=== PATIENT | male | born 1990 | race Caucasian/White ===

== ENCOUNTER 2017-07-31 09:45 | Emergency (ER) | payer SELFPAY ==
[2017-07-31] MEDS ORDERED: HYDROcodone/ACETAMIN 5-325 MG* 1 TAB PO ONE ×2 (10:32→11:25)
[2017-07-31] MEDS ORDERED: Ketorolac INJ* 30 MG/ML 1 ML VIAL IM ONE (10:32)
--- NOTE | 2017-07-31 10:49 | UC ---
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 + immediate pain, patient was wearing protective shoe wear. R foot pain and R ankle pain, + swelling. no medications prior to arrival. Work injury. Patient non-ambulatory due to pain - History of Current Complaint Chief Complaint: UCLowerExtremity Stated Complaint: RIGHT FOOT INJURY WC Time Seen by Provider: 07/31/17 10:28 Hx Obtained From: Patient Onset/Duration: Sudden Onset, Lasting Hours Severity Initially: Severe Severity Currently: Severe Pain Intensity: 10 Pain Scale Used: 0-10 Numeric Aggravating Factor(s): Standing, Ambulation Alleviating Factor(s): Rest Able to Bear Weight: No Related History: Occupational Injury - Allergies/Home Medications Allergies/Adverse Reactions: Allergies Allergy/AdvReac Type Severity Reaction Status Date / Time Risperidone [From Risperdal] Allergy Swelling Verified 07/31/17 10:09 Of Face,Lips,& Throat PMH/Surg Hx/FS Hx/Imm Hx Previously Healthy: Yes - Surgical History Surgical History: Yes Surgery Procedure, Year, and Place: PE Tubes as a child, CHEST TUBE WITH PNEUMO IN 2009 - Social History Alcohol Use: None Substance Use Type: None Smoking Status (MU): Former Smoker Type: Cigarettes Amount Used/How Often: 1/2 PPD Length of Time of Smoking/Using Tobacco: 4 Years Have You Smoked in the Last Year: Yes Household Exposure Type: Cigarettes - Immunization History Most Recent Influenza Vaccination: no Review of Systems Motor: Decreased ROM Musculoskeletal: Arthralgia, Decreased ROM, Edema, Myalgia Psychological: Anxious Is Patient Immunocompromised?: No All Other Systems Reviewed And Are Negative: Yes Physical Exam Triage Information Reviewed: Yes Appearance: Well-Appearing, Well-Nourished, Pain Distress Vital Signs: Initial Vital Signs Temp 98.4 F 07/31/17 10:05 Pulse 88 07/31/17 10:05 Resp 16 07/31/17 10:05 BP 124/77 07/31/17 10:05 Pulse Ox 100 07/31/17 10:05 Vital Signs Reviewed: Yes Musculoskeletal: Positive: ROM Intact - R toes however painful, Edema @ - R foot diffusely, Other: - decreased ankle ROM due to pain , tenderness to light touch over R foot ,+ pain over medial malleolus. Neurological: Positive: Alert, Other: - sensation intact to light touch Psychological Exam: Normal Skin: Positive: Other - ecchymosis over dorsal aspect of right foot Lower Extremity Course/Dx - Course Course Of Treatment: Radiograph- non disp fx 2nd met- follow up closely with ortho within 1 week, non-weight bearing, splint placed. pain medications given , pain under control at D/C. - Differential Dx/Diagnosis Differential Diagnosis/HQI/PQRI: Cellulitis, Compartment Syndrome, Fracture ( Closed), Fracture (Open) Provider Diagnoses: closed fracture of 2nd metatarsal r foot Discharge - Discharge Plan Condition: Fair Disposition: HOME Prescriptions: Azithromyxin AMENA (NF) [Z-Amena (Zithromax) 250 mg tabs #6] 2 tab PO .TODAY, THEN 1 DAILY #6 tab HYDROcodone/ACETAMIN 5-325 MG* [[place] 5-325 TAB*] 2 tab PO Q6H PRN #40 tab MDD 8 PRN Reason: Pain Ibuprofen TAB* [Motrin TAB* 600 MG] 600 mg PO Q6H PRN #40 tab PRN Reason: Pain Patient Education Materials: Foot Fracture in Adults (ED), Splint Care (ED), RICE Therapy (ED) Forms: *Work Release Referrals: Vamshi Butt MD [Medical Doctor] - Clinton Singh MD [Primary Care Provider] - Additional Instructions: - Keep leg elevated, iced - FOllow up with orthopedics within 5-7 days - motrin every 6 hours for next 48 hours to keep down swelling - [place] as needed every 6 hours, 1-2 tablets for severe pain - - No working until cleared by ortho - Non-weight bearing, use crutches - return to ER/ UC with decreased feeling, increased pain, cool/ blue foot
--- NOTE | 2017-07-31 11:27 | RAD ---
HISTORY: Crush injury, right foot, pain anterior ankle COMPARISONS: January 28, 2009 VIEWS: 6, Frontal, lateral, and oblique views of the right foot and right ankle FINDINGS: BONE DENSITY: Normal. BONES: There is transverse nondisplaced fracture of the proximal second metatarsal. JOINTS: There is no arthropathy. The Lisfranc interval is normal. ALIGNMENT: There is no dislocation. SOFT TISSUES: Unremarkable. OTHER FINDINGS: None. IMPRESSION: NONDISPLACED FRACTURE OF THE PROXIMAL SECOND METATARSAL
[2017-07-31 11:51] VITALS: BP 114/66
== END 2017-07-31 12:54 | disposition home or self-care (01) ==
LOC: UCCORT 09:45
DX: S92.321A Displaced fracture of second metatarsal bone, right foot, initial encounter for closed fracture (principal); W22.8XXA Striking against or struck by other objects, initial encounter; Y92.89 Other specified places as the place of occurrence of the external cause; Y99.8 Other external cause status; Z88.8 Allergy status to other drugs, medicaments and biological substances; Z87.891 Personal history of nicotine dependence
CPT/HCPCS: 96372; 99213; G0463; J1885